=== PATIENT | female | born 1960 | race Caucasian/White ===

== ENCOUNTER → 2016-10-21 | Outpatient (CLI) | payer BC ==
[~2016-10-21] MED LIST: GLUCOPHAGE XR500 MG PO; LEVAQUIN250 MG PO; LIPITOR TAB 2020 MG PO; PROTONIX20 MG PO; VOLTAREN EC 7575 MG PO
== END ==
LOC: RAD 11:16
DX: M79.604 Pain in right leg (principal); R05 Cough
CPT/HCPCS: 71020; 73590